=== PATIENT | male | born 1965 | race Caucasian/White ===

== ENCOUNTER 2021-05-24 09:19 | Day surgery (SDC) | payer OTHER ==
[2021-05-24] MEDS ORDERED: Midazolam 1 MG/ML 2 ML SDV IV ONE (09:20)
[2021-05-24] MEDS ORDERED: Propofol 200 MG/20 ML SDV IV ONE (09:20)
[2021-05-24] MEDS ORDERED: Glycopyrrolate 0.2 MG/ML 5 ML MDV IV ONE (09:20)
[2021-05-24] MEDS ORDERED: Sodium Chloride 0.9% 10 ML Syringe FLUSH PRN (09:45)
[2021-05-24] MEDS: Lactated Ringers 1,000 ML IV SCH (10:20)
== END 2021-05-24 12:25 | disposition home or self-care (01) ==
LOC: FB.SDS 09:19
PROVIDERS: ATTEND Surgery
DX: K64.4 Residual hemorrhoidal skin tags (principal); K62.5 Hemorrhage of anus and rectum; K42.9 Umbilical hernia without obstruction or gangrene; I10 Essential (primary) hypertension; K21.9 Gastro-esophageal reflux disease without esophagitis; Z98.890 Other specified postprocedural states; Z79.899 Other long term (current) drug therapy; Z86.16 Personal history of COVID-19
CPT/HCPCS: 00811-QZ; J2250; J2704; J3490; J7120